=== PATIENT | female | born 1970 | race Caucasian/White ===

== ENCOUNTER → 2017-06-19 | Outpatient (REF) | payer BC, OTHER | LOC: M LAB REF 09:35 | PROVIDERS: ATTEND Physician Assistant | DX: J06.9 Acute upper respiratory infection, unspecified (principal) ==

== ENCOUNTER → 2021-09-07 | Outpatient (REF) | payer BC | LOC: M WUC 09:52 | PROVIDERS: ATTEND Physician Assistant | DX: N39.0 Urinary tract infection, site not specified (principal) ==

== ENCOUNTER → 2023-04-11 | Outpatient (REF) | payer OTHER ==
[~2023-04-11] MED LIST: ADV250INH INH; ATOR40TA75 PO; CYAN2500 PO; ECOT81TA5 PO; LEVO88TA3 PO; PROAAER10 INH; QUERPOW2 PO; ZINC1TAB2 PO; [UNRECOGNIZED DRUG - CODE] PO
== END ==
LOC: M SFHCDERM 14:08
PROVIDERS: ATTEND Nurse Practitioner Family
DX: D48.9 Neoplasm of uncertain behavior, unspecified (principal)